=== PATIENT | female | born 1975 | race Caucasian/White ===

== ENCOUNTER 2017-02-19 21:09 | Emergency (ER) | payer MEDICAID ==
--- NOTE | 2017-02-20 03:41 | ER Document Report ---
ED General - General Chief Complaint: High Blood Pressure Stated Complaint: ABDOMINAL PAIN Time Seen by Provider: 02/20/17 02:57 Notes: Patient is a 41-year-old female presents with complaint of feeling fatigued. Patient does have history of CHF. She was competing in the [employer] this past weekend. Competition was in [place]. Family said she did have a busy weekend. Said that caretakers feel that maybe she is retaining more fluid. She felt as if her abdomen is more distended. She has chronic abdominal pain. She was getting constipated because of the pain medicine she takes for chronic abdominal pain. The mother did give her Dulcolax. She had a large bowel movement this morning. That seems to be improving. They have noticed slight increase edema in her lower extremities. Patient says she feels some shortness of breath. No chest pain. She does have history of lupus. She takes a total of 160 mg of Lasix a day. She is on thyroid medication. TRAVEL OUTSIDE OF THE [place] IN LAST 30 DAYS: No - Related Data Allergies/Adverse Reactions: APIXABAN Allergy (Verified 05/27/14 15:53) ciprofloxacin [Ciprofloxacin] Allergy (Verified 05/27/14 15:15) dabigatran etexilate Allergy (Verified 05/27/14 15:53) fexofenadine [Fexofenadine] Allergy (Verified 05/27/14 15:53) Penicillins Allergy (Verified 05/27/14 15:15) Rash phenytoin sodium [From Dilantin] Allergy (Verified 05/27/14 15:15) phenytoin sodium extended [From Dilantin] Allergy (Verified 05/27/14 15:15) Rivaroxaban Allergy (Verified 05/27/14 15:53) Past Medical History - Social History Smoking Status: Never Smoker Frequency of alcohol use: None Drug Abuse: None Family History: Reviewed & Not Pertinent Patient has suicidal ideation: No Patient has homicidal ideation: No - Past Medical History Cardiac Medical History: Reports: Hx Atrial Fibrillation, Hx Congestive Heart Failure, Hx Hypertension Denies: Hx Coronary Artery Disease, Hx Heart Attack Pulmonary Medical History: Reports: Hx Pneumonia Denies: Hx Asthma, Hx Bronchitis, Hx COPD Neurological Medical History: Reports: Hx Seizures. Denies: Hx Cerebrovascular Accident Renal/ Medical History: Denies: Hx Peritoneal Dialysis Musculoskeltal Medical History: Denies Hx Arthritis Psychiatric Medical History: Denies: Hx Depression Past Surgical History: Reports: Hx Cholecystectomy, Hx Myringotomy, Hx Tonsillectomy - Immunizations Hx Diphtheria, Pertussis, Tetanus Vaccination: No Hx Pneumococcal Vaccination: 05/30/14 Review of Systems - Review of Systems Notes: My Normal Review Basic REVIEW OF SYSTEMS: CONSTITUTIONAL : Denies fever, chills, or sweats. Denies recent illness. EENT: Denies eye, ear, throat, or mouth pain or symptoms. Denies nasal or sinus congestion. CARDIOVASCULAR: Denies chest pain. RESPIRATORY: Denies cough, cold, or chest congestion. Denies shortness of breath, difficulty breathing, or wheezing. GASTROINTESTINAL: Some abdominal pain. Denies nausea, vomiting, or diarrhea. Denies constipation. Last BM: GENITOURINARY: Denies difficulty urinating, painful urination, burning, frequency, or blood in urine. FEMALE GENITOURINARY: Denies vaginal bleeding, abnormal or irregular periods. LMP: Currently on menstrual period. MUSCULOSKELETAL: Denies neck or back pain or joint pain or swelling. SKIN: Denies rash or skin lesions. LYMPHATIC: Chronic edema. NEUROLOGICAL: Denies altered mental status or loss of consciousness. Denies headache. Denies weakness or paralysis or loss of use of either side. Denies problems with gait or speech. Denies sensory or motor loss. ALL OTHER SYSTEMS REVIEWED AND NEGATIVE. Physical Exam - Vital signs Vitals: Temp Pulse Resp BP Pulse Ox 98.6 F 100 20 123/83 98 02/19/17 21:35 02/19/17 21:35 02/19/17 21:35 02/19/17 21:35 02/19/17 21:35 - Notes Notes: General Appearance: Well nourished, alert, cooperative, no acute distress, no obvious discomfort. Well-appearing. Vitals: reviewed, See vital signs table. Head: no swelling or tenderness to the head Eyes: PERRL, EOMI, Conjuctiva clear Mouth: No decreasd moisture Neck: Supple, no neck tenderness, No thyromegaly Lungs: No wheezing, No rales, No rhonci, No accessory muscle use, good air exchange bilaterally. Heart: Normal rate, Regular rythm, No murmur, no rub Abdomen: Normal BS, soft, No rigidity, No abdominal tenderness, No guarding, no rebound, no abdominal masses, no organomegaly Extremities: strength 5/5 in all extremities, good pulses in all extremities, no swelling or tenderness in the extremities, 1+ bilateral lower extremity edema. Skin: warm, dry, appropriate color, no rash Neuro: speech clear, oriented x 3, normal affect, responds appropriately to questions. Course - Vital Signs Vital signs: Temp Pulse Resp BP Pulse Ox 98 F 73 18 111/58 L 95 02/20/17 05:54 02/20/17 05:54 02/20/17 05:54 02/20/17 05:54 02/20/17 05:54 - Laboratory Result Diagrams: 02/20/17 04:13 02/20/17 04:13 Laboratory results interpreted by me: 02/20/17 02/20/17 02/20/17 02:50 04:13 04:13 Hgb 11.5 L Hct 35.8 L RDW 15.1 H Seg Neutrophils % 78.6 H Lymphocytes % 10.0 L PT Potassium 3.2 L Creatinine 0.45 L Alkaline Phosphatase 134 H Creatine Kinase NT-Pro-B Natriuret Pep Urine Protein 30 H Urine Blood MODERATE H Urine Ascorbic Acid 40 H 02/20/17 02/20/17 02/20/17 04:13 04:13 04:13 Hgb Hct RDW Seg Neutrophils % Lymphocytes % PT 24.2 H Potassium Creatinine Alkaline Phosphatase Creatine Kinase 22 L NT-Pro-B Natriuret Pep 1050 H Urine Protein Urine Blood Urine Ascorbic Acid - EKG Interpretation by Me Additional EKG results interpreted by me: 02/20/17 03:35 EKG #1 is reviewed and interpreted by me. EKG shows A. fib with rate of [address] segment elevation or depression. No ischemic T-wave inversions. QRS duration QT intervals are within normal range. Old EKG for comparison is from November 26, 2014. EKG #2 is reviewed and interpreted by me. EKG shows A. fib with a rate of [address] segment elevation or depression. No ischemic T-wave inversions. QRS duration is within normal range. QTc interval slightly prolonged. Old EKG available for comparison is from earlier today. - Transfer of Care Notes: 02/20/17 09:29 Patient has remained very stable. She has had no increased work of breathing. She has been laying flat with and has An oxygen saturation of 98-100%. She has been in a fib the whole time she has been here. Her rate mainly is in the 90s. Blood pressure has been good. Currently she looks well and I feel she is safe for discharge. I did speak with Dr. Mata, field education director covering for Dr. Herman. I did explain to him the chest x-ray as well as laboratory findings. I did compare her chest x-ray to her previous chest x-rays and it appears to be minimally to unchanged. Dr. Mata suggested that the patient does need to be set up for an outpatient cardioversion. I did explain this to the family the family requested that I transfer the patient today so that they would not worry about transportation arrangements next week. I did call back Dr. Mata and he requests that it since the patient is therapeutic that I should cardiovert here. I did review the patient's previous INRs and the mother does mention that the patient's INRs have been fluctuating and sometimes subtherapeutic. Family does not want me to perform cardioversion here and I also agree that I should not be performing a transthoracic cardioversion when the patient's INRs are not consistently therapeutic. I did contact Dr. Mata and explained to him. He understands and says that he would contact Dr. Herman to arrange for an outpatient cardioversion. I went back to the family and they are understanding of this. They are encouraged to keep the patient from doing exertional activities. Encouraged to return to ER immediately if the patient has increased difficulty breathing, fevers, chest pain, or if she appears unwell in any way. Family agrees with plan and patient will be discharged home. Patient also has a follow-up appointment with Dr. Rodríguez on Wednesday. I did call Dr. Rodríguez and discuss plan with him. Dictation of this chart was performed using voice recognition software; therefore, there may be some unintended grammatical errors. Discharge - Discharge Clinical Impression: Atrial fibrillation Qualifiers: Atrial fibrillation type: persistent Qualified Code(s): I48.1 - Persistent atrial fibrillation Condition: Good Disposition: HOME, SELF-CARE Additional Instructions: You should be hearing from Dr. Herman's office on Wednesday to arrange for a cardioversion. Please call them if you do not hear from them by Wednesday afternoon. Please return to the ER immediately if Abbie develops worsening difficulty breathing, fevers, or appears to be worsening in any way. Referrals: NCAHO RODRÍGUEZ MD [Primary Care Provider] - 02/22/17
--- NOTE | 2017-02-20 04:21 | RADIOLOGY REPORT (SQ) ---
EXAM DESCRIPTION: CHEST SINGLE VIEW COMPLETED DATE/TIME: 02/20/2017 4:08 am REASON FOR STUDY: dyspnea COMPARISON: 11/29/2014. 11/26/2014. EXAM PARAMETERS: NUMBER OF VIEWS: One view. TECHNIQUE: Single frontal radiographic view of the chest acquired. RADIATION DOSE: NA LIMITATIONS: None. FINDINGS: LUNGS AND PLEURA: Moderate central pulmonary edema pattern. MEDIASTINUM AND HILAR STRUCTURES: No masses. Contour normal. HEART AND VASCULAR STRUCTURES: Moderate enlargement of the cardiac silhouette. BONES: No acute findings. HARDWARE: None in the chest. OTHER: No other significant finding. IMPRESSION: Moderate CHF pattern. TECHNICAL DOCUMENTATION: JOB ID: [id number]
[2017-02-20 04:34] LABS: APPEARANCE,URINE SLIGHTLY-CLOUDY; BILIRUBIN,URINE NEGATIVE (NEGATIVE); GLUCOSE, URINE NEGATIVE (NEGATIVE); KETONES,URINE NEGATIVE (NEGATIVE); LEUKOCYTE ESTERASE,URINE NEGATIVE (NEGATIVE); NITRITE,URINE NEGATIVE (NEGATIVE); PROTEIN,URINE 30 mg/dL (NEGATIVE); URINE SPECIFIC GRAVITY 1.024; UROBILINOGEN,URINE NEGATIVE mg/dL (<2.0)
[2017-02-20 04:37] LABS: ALANINE AMINOTRANSFERASE 26 U/L (9-52); ALBUMIN 3.7 g/dL (3.5-5.0); ALKALINE PHOSPHATASE 134 U/L (38-126); ANION GAP 12 (5-19); ASPARTATE AMINO TRANSFERASE 18 U/L (14-36); BILIRUBIN,DIRECT 0.4 mg/dL (0.0-0.4); BILIRUBIN,TOTAL 0.6 mg/dL (0.2-1.3); BLOOD UREA NITROGEN 10 mg/dL (7-20); CALCIUM 9.2 mg/dL (8.4-10.2); CARBON DIOXIDE 26 mmol/L (22-30); CHLORIDE 103 mmol/L (98-107); CREATININE RESULT 0.45 mg/dL (0.52-1.25); GLUCOSE 93 mg/dL (75-110); LIPASE 88.9 U/L (23-300); POTASSIUM 3.2 mmol/L (3.6-5.0); SODIUM 140.9 mmol/L (137-145); TOTAL PROTEIN 7.3 g/dL (6.3-8.2)
[2017-02-20 04:38] LABS: ABSOLUTE EOSINOPHILS # (AUTO) 0.1 10^3/uL (0.0-0.6); ABSOLUTE LYMPHOCYTES (AUTO) 0.5 10^3/uL (0.5-4.7); ABSOLUTE MONOCYTES (AUTO) 0.4 10^3/uL (0.1-1.4); ABSOLUTE NEUT (AUTO) 3.7 10^3/uL (1.7-8.2); BASOPHILS % (AUTO) 0.3 % (0-2); EOSINOPHILS % (AUTO) 2.3 % (0-6); HEMATOCRIT 35.8 % (36.0-47.0); HEMOGLOBIN 11.5 g/dL (12.0-15.5); HGB HCT DIFFERENCE -1.3; MEAN CORPUSCULAR HEMOGLOBIN 28.3 pg (27.0-33.4); MEAN CORPUSCULAR HGB CONC 32.3 g/dL (32.0-36.0); MEAN CORPUSCULAR VOLUME 88 fl (80-97); MONOCYTES % (AUTO) 8.8 % (3-13); RED BLOOD COUNT 4.08 10^6/uL (3.72-5.28); RED CELL DISTRIBUTION WIDTH 15.1 % (11.5-14.0); SEGMENTED NEUTROPHILS % (AUTO) 78.6 % (42-78); WHITE BLOOD COUNT 4.7 10^3/uL (4.0-10.5)
[2017-02-20 05:08] LABS: TROPONIN I 0.018 ng/mL
[2017-02-20 05:09] LABS: THYROID STIMULATING HORMONE 4.07 uIU/mL (0.47-4.68)
[2017-02-20 05:11] LABS: CREATINE KINASE MB < 0.22 ng/mL (<4.55)
[2017-02-20] MEDS ORDERED: FUROSEMIDE INJ/PF 40 MG/4 ML SDV IV ONE (05:26)
[2017-02-20 07:48] LABS: PROTHROMBIN TIME 24.2 SEC (11.4-15.4)
[2017-02-20] MEDS ORDERED: WARFARIN SODIUM 5 MG TABLET PO ONE (07:49)
[2017-02-20 09:46] VITALS: BP 98/66
--- NOTE | 2017-02-22 09:27 | EKG REPORT ---
SEVERITY:- ABNORMAL ECG - ATRIAL FIBRILLATION, V-RATE 75-124 CONSIDER RIGHT VENTRICULAR HYPERTROPHY BORDERLINE T ABNORMALITIES, INFERIOR LEADS : Confirmed by: Rajan Chandler 22-Feb-2017 09:26:24
--- NOTE | 2017-02-22 09:27 | EKG REPORT ---
SEVERITY:- ABNORMAL ECG - ATRIAL FIBRILLATION, V-RATE 91-115 BORDERLINE T ABNORMALITIES, INFERIOR LEADS : Confirmed by: Rajan Chandler 22-Feb-2017 09:26:37
== END 2017-02-20 09:59 | disposition home or self-care (01) ==
LOC: ER 21:09
DX: I48.1 Persistent atrial fibrillation (principal); R03.0 Elevated blood-pressure reading, without diagnosis of hypertension; R10.9 Unspecified abdominal pain; R53.83 Other fatigue; I50.9 Heart failure, unspecified; R06.02 Shortness of breath; M32.9 Systemic lupus erythematosus, unspecified; Z79.899 Other long term (current) drug therapy
CPT/HCPCS: 93005; 99284; 96374; 36415; 84439; 82553; 82550; 83690; 84443; 85025; 85610; 81025; 80053; 81001; 84484; 85379; 83880; 71010; 93010; J1940; J3490

== ENCOUNTER → 2017-08-11 | Outpatient (CLI) | payer MEDICAID ==
--- NOTE | 2017-08-11 11:24 | RADIOLOGY REPORT (SQ) ---
EXAM DESCRIPTION: CT FACIAL AREA WITHOUT COMPLETED DATE/TIME: 08/11/2017 10:05 am REASON FOR STUDY: CHRONIC SINUSITIS J32.9 CHRONIC SINUSITIS, UNSPECIFIED COMPARISON: None. TECHNIQUE: Noncontrast scanning through the paranasal sinuses using bone algorithm. Reconstructed MPR images reviewed. All images stored on PACS. Images acquired for image guided surgery. All CT scanners at this facility use dose modulation, iterative reconstruction, and/or weight based d osing when appropriate to reduce radiation dose to as low as reasonably achievable (ALARA). [facility]: Dose Right [facility]: CareDose [facility]: Dose Right [facility]: Teradose 4D [facility]: TRUECar RADIATION DOSE: mGy. FINDINGS: NASAL PASSAGES: Clear. No polyps or masses. OSTEOMEATAL UNITS AND NASOFRONTAL DUCTS: Patent. No agger nasi or Tamie cells. MAXILLARY SINUSES: Mild mucous membrane thickening. Maxillary sinus outlets are patent. ETHMOID SINUSES: Well-pneumatized and clear. SPHENOID SINUSES: Well-pneumatized and clear. No sphenoethmoid air cells or pneumatized pterygoid rec ess. No pneumatized dorsal sella. FRONTAL SINUSES: Well-pneumatized and clear. MASTOID AIR CELLS: Clear. ORBITS: Normal and symmetrical. NASAL SEPTUM: Midline. No nasal septal spurs. TEMPOROMANDIBULAR JOINTS: Normal. TURBINATES: No pneumatized turbinates. MUCOPERIOSTEAL THICKENING: No. MUCOCELE: No. OTHER: No other significant findings. IMPRESSION: MILD MUCOUS MEMBRANE THICKENING IN THE MAXILLARY SINUSES. OTHERWISE CLEAR. TECHNICAL DOCUMENTATION: JOB ID: [id number] Quality ID # [id number]: Final reports with documentation of one or more dose reduction techniques (e.g., Au tomated exposure control, adjustment of the mA and/or kV according to patient size, use of iterative reconstruction technique) 2010 [employer]- All Rights Reserved
== END ==
LOC: RAD 09:47
PROVIDERS: ATTEND Internal Medicine
DX: J32.9 Chronic sinusitis, unspecified (principal)
CPT/HCPCS: 70486

== ENCOUNTER 2018-09-29 16:18 | Emergency (ER) | payer MEDICAID ==
--- NOTE | 2018-09-29 17:15 | ER Document Report ---
ED Medical Screen (RME) - General Chief Complaint: Hand Injury Stated Complaint: HAND INJURY Time Seen by Provider: 09/29/18 17:14 Mode of Arrival: Ambulatory Information source: Relative Notes: This is a 42-year-old female with a history of atrial fibrillation, cardiomyopathy (Coumadin), lupus, epilepsy. Patient presents to the emergency room after closing the car door on her right hand. Patient presents with pain to the right hand. TRAVEL OUTSIDE OF THE [place] IN LAST 30 DAYS: No - HPI Onset: Just prior to arrival Onset/Duration: Sudden Quality of pain: Dull Severity: Moderate Pain Level: 2 Associated Symptoms: denies: Chest pain, Shortness of breath Exacerbated by: Movement Relieved by: Remaining still Similar symptoms previously: Yes Recently seen / treated by doctor: Yes - Related Data Smoking: Non-smoker Frequency of alcohol use: None Drug Abuse: None Allergies/Adverse Reactions: APIXABAN Allergy (Verified 09/29/18 16:22) ciprofloxacin [Ciprofloxacin] Allergy (Verified 09/29/18 16:22) dabigatran etexilate Allergy (Verified 09/29/18 16:22) fexofenadine [Fexofenadine] Allergy (Verified 09/29/18 16:22) Penicillins Allergy (Verified 09/29/18 16:22) Rash phenytoin sodium [From Dilantin] Allergy (Verified 09/29/18 16:22) phenytoin sodium extended [From Dilantin] Allergy (Verified 09/29/18 16:22) Rivaroxaban Allergy (Verified 09/29/18 16:22) Past Medical History - General Information source: Patient - Social History Cigarette use (# per day): No Chew tobacco use (# tins/day): No Frequency of alcohol use: None Drug Abuse: None Lives with: Family Family history: None - Past Medical History Cardiac Medical History: Reports: Hx Atrial Fibrillation, Hx Congestive Heart Failure, Hx Hypertension Denies: Hx Coronary Artery Disease, Hx Heart Attack Pulmonary Medical History: Reports: Hx Pneumonia Denies: Hx Asthma, Hx Bronchitis, Hx COPD Neurological Medical History: Reports: Hx Seizures. Denies: Hx Cerebrovascular Accident Renal/ Medical History: Denies: Hx Peritoneal Dialysis Musculoskeltal Medical History: Denies Hx Arthritis Psychiatric Medical History: Denies: Hx Depression Past Surgical History: Reports: Hx Cholecystectomy, Hx Myringotomy, Hx Tonsillectomy - Immunizations Hx Diphtheria, Pertussis, Tetanus Vaccination: No Review of Systems - Review of Systems Constitutional: denies: Chills, Fever EENT: No symptoms reported Cardiovascular: denies: Chest pain, Palpitations, Heart racing Respiratory: denies: Cough, Hemoptysis, Wheezing Gastrointestinal: denies: Abdominal pain, Diarrhea, Vomiting Genitourinary: No symptoms reported Female Genitourinary: No symptoms reported Musculoskeletal: See HPI Skin: No symptoms reported Hematologic/Lymphatic: No symptoms reported Neurological/Psychological: No symptoms reported Physical Exam - Vital signs Vitals: Temp Pulse Resp BP Pulse Ox 98.5 F 86 16 118/70 100 09/29/18 16:46 09/29/18 16:46 09/29/18 16:46 09/29/18 16:46 09/29/18 16:46 Notes: Physical exam: GENERAL: Vision is alert and oriented x3, no acute distress HEAD: Atraumatic, normocephalic. EYES: Pupils equal round and reactive to light, extraocular movements intact, sclera anicteric, conjunctiva are normal. ENT: TMs normal, nares patent, oropharynx clear without exudates. Moist mucous membranes. NECK: Normal range of motion, supple without obvious mass LUNGS: Breath sounds clear to auscultation bilaterally and equal. No wheezes rales or rhonchi. HEART: Regular rate and rhythm without murmurs, rubs or gallops. ABDOMEN: Soft, normoactive bowel sounds. No tenderness to palpation. No guarding, no rebound. No masses appreciated. EXTREMITIES: Right hand: Patient does have a swelling over the MCP joints 3 - 5. She has some tenderness over the MCP joints. There is a range of motion. There is some pain with range of motion. The patient's cap refill is good. There is no significant hematoma. There is no breaks in the skin. There is no active bleeding. She does have a good radial pulse. NEUROLOGICAL: Baseline as per family PSYCH: Baseline as per family SKIN: Noted above underneath the hand exam.. Course - Vital Signs Vital signs: Temp Pulse Resp BP Pulse Ox 98.5 F 90 16 121/67 99 09/29/18 16:46 09/29/18 18:34 09/29/18 18:34 09/29/18 18:34 09/29/18 18:34 - Diagnostic Test Radiology reviewed: Image reviewed, Reports reviewed - X-rays of the hand show no acute fracture Doctor's Discharge - Discharge Clinical Impression: Right hand contusion status post crush Condition: Stable Disposition: HOME, SELF-CARE Additional Instructions: As we discussed, the x-rays of the hand showed no fractures of the bones. I do expect some bruising because you are on the Coumadin, but I do not expect significant bleeding given that there is no fractures of the bone. You can use the splint for comfort. You may take off if in the shower. Use the splint for 1 week and gradual range of motion after that. Follow-up with Dr. Rodríguez, return to the emergency room for worsening pain. Referrals: STEPHANI SCHRADER MD [NO LOCAL MD] - Follow up as needed NACHO RODRÍGUEZ MD [Primary Care Provider] - Follow up in 3-5 days
--- NOTE | 2018-09-29 18:05 | RADIOLOGY REPORT (SQ) ---
EXAM DESCRIPTION: HAND RIGHT 3 VIEWS COMPLETED DATE/TIME: 09/29/2018 5:40 pm REASON FOR STUDY: right hand crush COMPARISON: None. EXAM PARAMETERS: NUMBER OF VIEWS: Three views. TECHNIQUE: AP, lateral and oblique radiographic images acquired of the right hand. LIMITATIONS: None. FINDINGS: MINERALIZATION: Normal. BONES: No acute fracture or dislocation. No worrisome bone lesions. JOINTS: No effusions. SOFT TISSUES: No soft tissue swelling. No foreign body. OTHER: No other significant finding. IMPRESSION: NEGATIVE STUDY OF THE RIGHT HAND. NO RADIOGRAPHIC EVIDENCE OF ACUTE INJURY. TECHNICAL DOCUMENTATION: JOB ID: [id number] [email or web address]- All Rights Reserved Reading location - IP/workstation name: [email or web address]
[2018-09-29 18:34] VITALS: BP 121/67
== END 2018-09-29 18:34 | disposition home or self-care (01) ==
LOC: ER 16:18
DX: S60.221A Contusion of right hand, initial encounter (principal); W23.1XXA Caught, crushed, jammed, or pinched between stationary objects, initial encounter; I48.91 Unspecified atrial fibrillation; I42.9 Cardiomyopathy, unspecified; I50.9 Heart failure, unspecified; I11.0 Hypertensive heart disease with heart failure; Z79.02 Long term (current) use of antithrombotics/antiplatelets; Z90.49 Acquired absence of other specified parts of digestive tract
CPT/HCPCS: 99283; 73130; L3908

== ENCOUNTER → 2019-08-16 | Outpatient (CLI) | payer MEDICARE, MEDICAID | LOC: LAB 12:30 | PROVIDERS: ATTEND Internal Medicine Cardiovascular Disease | DX: Z20.5 Contact with and (suspected) exposure to viral hepatitis (principal) | CPT/HCPCS: 86701; 87340 ==

== ENCOUNTER 2020-10-11 11:54 | Emergency (ER) | payer MEDICARE, MEDICAID ==
[2020-10-11 12:03] VITALS: BP 102/72
--- NOTE | 2020-10-11 12:37 | ER Document Report ---
ED Medical Screen (RME) - General Stated Complaint: MEDICAL COMPLAINT Time Seen by Provider: 10/11/20 12:32 Primary Care Provider: STEPHANI SCHRADER MD [Primary Care Provider] - Follow up as needed Notes: Patient presents with report of elevated INR greater than 8 from a test that was done today. Patient typically takes Coumadin 10 mg on Wednesday and Wednesday with 15 mg on the other days. Patient last took a dose last night. Patient reports a fall recently with a small bruise to the right shoulder but no other abnormal bleeding or bruising. I have greeted and performed a rapid initial assessment of this patient. A comprehensive ED assessment and evaluation of the patient, analysis of test results and completion of the medical decision making process will be conducted by additional ED providers. TRAVEL OUTSIDE OF THE [place] IN LAST 30 DAYS: No - Related Data Allergies/Adverse Reactions: APIXABAN Allergy (Verified 10/11/20 12:27) ciprofloxacin [Ciprofloxacin] Allergy (Verified 10/11/20 12:27) dabigatran etexilate Allergy (Verified 10/11/20 12:27) fexofenadine [Fexofenadine] Allergy (Verified 10/11/20 12:27) Penicillins Allergy (Verified 10/11/20 12:27) Rash phenytoin sodium [From Dilantin] Allergy (Verified 10/11/20 12:27) phenytoin sodium extended [From Dilantin] Allergy (Verified 10/11/20 12:27) Rivaroxaban Allergy (Verified 10/11/20 12:27) Past Medical History - Social History Family history: None - Past Medical History Cardiac Medical History: Reports: Hx Atrial Fibrillation, Hx Congestive Heart Failure, Hx Hypertension Denies: Hx Coronary Artery Disease, Hx Heart Attack Pulmonary Medical History: Reports: Hx Pneumonia Denies: Hx Asthma, Hx Bronchitis, Hx COPD Neurological Medical History: Reports: Hx Seizures. Denies: Hx Cerebrovascular Accident Renal/ Medical History: Denies: Hx Peritoneal Dialysis Musculoskeltal Medical History: Denies Hx Arthritis Psychiatric Medical History: Denies: Hx Depression Past Surgical History: Reports: Hx Cardiac Surgery - cardioversion, ablasion, Hx Cholecystectomy, Hx Myringotomy, Hx Tonsillectomy - Immunizations Hx Diphtheria, Pertussis, Tetanus Vaccination: No Physical Exam - Vital signs Vitals: Temp Pulse Resp BP Pulse Ox 97.6 F 88 20 102/72 100 10/11/20 12:00 10/11/20 12:00 10/11/20 12:00 10/11/20 12:00 10/11/20 12:00 - General General appearance: Appears well, Alert - Respiratory Respiratory status: No respiratory distress Course - Vital Signs Vital signs: Temp Pulse Resp BP Pulse Ox 97.6 F 88 20 102/72 100 10/11/20 12:00 10/11/20 12:00 10/11/20 12:00 10/11/20 12:00 10/11/20 12:00 Doctor's Discharge - Discharge Referrals: STEPHANI SCHRADER MD [Primary Care Provider] - Follow up as needed
[2020-10-11 13:04] LABS: HEMATOCRIT 33.5 % (36.0-47.0); HEMOGLOBIN 11.2 g/dL (12.0-15.5); MEAN CORPUSCULAR HEMOGLOBIN 30.7 pg (27.0-33.4); MEAN CORPUSCULAR HGB CONC 33.5 g/dL (32.0-36.0); MEAN CORPUSCULAR VOLUME 92 fl (80-97); PLATELET COUNT 186 10^3/uL (150-450); RED BLOOD COUNT 3.65 10^6/uL (3.72-5.28); RED CELL DISTRIBUTION WIDTH 15.8 % (11.5-14.0); WHITE BLOOD COUNT 4.7 10^3/uL (4.0-10.5)
[2020-10-11 13:17] LABS: ALBUMIN 4.3 g/dL (3.5-5.0); ALKALINE PHOSPHATASE 145 U/L (38-126); ANION GAP 12 (5-19); ASPARTATE AMINO TRANSFERASE 34 U/L (14-36); BILIRUBIN,DIRECT 0.3 mg/dL (0.0-0.4); BILIRUBIN,TOTAL 0.4 mg/dL (0.2-1.3); BLOOD UREA NITROGEN 26 mg/dL (7-20); CALCIUM 9.3 mg/dL (8.4-10.2); CARBON DIOXIDE 32 mmol/L (22-30); CHLORIDE 96 mmol/L (98-107); GLUCOSE 112 mg/dL (75-110); TOTAL PROTEIN 7.8 g/dL (6.3-8.2)
[2020-10-11 13:22] LABS: ABSOLUTE LYMPHOCYTES# (MANUAL) 0.1 10^3/uL (0.5-4.7); ABSOLUTE MONOCYTES # (MANUAL) 0.2 10^3/uL (0.1-1.4); BAND NEUTROPHILS % (MANUAL) 1 % (3-5); BASOPHILS % (MANUAL) 0 % (0-2); EOSINOPHILS % (MANUAL) 0 % (0-6); LYMPHOCYTES % (MANUAL) 2 % (13-45); MONOCYTES % (MANUAL) 5 % (3-13); SEGMENTED NEUTROPHILS % (MAN) 92 % (42-78); TOTAL CELLS COUNTED 100
[2020-10-11 13:23] LABS: OVALOCYTES SLIGHT; PLATELET COMMENT ADEQUATE; POIKILOCYTOSIS SLIGHT
[2020-10-11 13:39] LABS: INTERNATIONAL RATION (INR) 10.92; PROTHROMBIN TIME 83.1 SEC (11.4-15.4)
--- NOTE | 2020-10-11 13:46 | ER Document Report ---
ED General - General Chief Complaint: Abnormal Lab Results Stated Complaint: MEDICAL COMPLAINT Time Seen by Provider: 10/11/20 12:32 Primary Care Provider: STEPHANI SCHRADER MD [NO LOCAL MD] - 10/14/20 Notes: Patient is a 44-year-old female with a history of congestive heart failure, atrial fibrillation, lupus, and epilepsy presents emergency department with elevated INR levels. Her INR was 9 from the outpatient lab. About 2 weeks ago, she fell out of the chair. Mother states that she has been a little more lethargic than normal. Patient also has a history of cognitive delay. She is not able to give any meaningful history or say what hurts. TRAVEL OUTSIDE OF THE [place] IN LAST 30 DAYS: No - Related Data Allergies/Adverse Reactions: APIXABAN Allergy (Verified 10/11/20 12:27) ciprofloxacin [Ciprofloxacin] Allergy (Verified 10/11/20 12:27) dabigatran etexilate Allergy (Verified 10/11/20 12:27) fexofenadine [Fexofenadine] Allergy (Verified 10/11/20 12:27) Penicillins Allergy (Verified 10/11/20 12:27) Rash phenytoin sodium [From Dilantin] Allergy (Verified 10/11/20 12:27) phenytoin sodium extended [From Dilantin] Allergy (Verified 10/11/20 12:27) Rivaroxaban Allergy (Verified 10/11/20 12:27) Home Medications: coumadin Past Medical History - Social History Smoking Status: Never Smoker Chew tobacco use (# tins/day): No Frequency of alcohol use: None Drug Abuse: None Family History: Reviewed & Not Pertinent - Past Medical History Cardiac Medical History: Reports: Hx Atrial Fibrillation, Hx Congestive Heart Failure, Hx Hypertension Denies: Hx Coronary Artery Disease, Hx Heart Attack Pulmonary Medical History: Reports: Hx Pneumonia Denies: Hx Asthma, Hx Bronchitis, Hx COPD Neurological Medical History: Reports: Hx Seizures. Denies: Hx Cerebrovascular Accident Renal/ Medical History: Denies: Hx Peritoneal Dialysis Musculoskeletal Medical History: Denies Hx Arthritis Psychiatric Medical History: Denies: Hx Depression Past Surgical History: Reports: Hx Cardiac Surgery - cardioversion, ablasion, Hx Cholecystectomy, Hx Myringotomy, Hx Tonsillectomy - Immunizations Hx Diphtheria, Pertussis, Tetanus Vaccination: No Hx Pneumococcal Vaccination: 09/17/14 Review of Systems - Review of Systems -: Yes ROS unobtainable due to patient's medical condition Physical Exam - Vital signs Vitals: Temp Pulse Resp BP Pulse Ox 97.6 F 88 20 102/72 100 10/11/20 12:00 10/11/20 12:00 10/11/20 12:00 10/11/20 12:00 10/11/20 12:00 - Notes Notes: PHYSICAL EXAMINATION: GENERAL: Appears well, healthy, well-nourished, no acute distress. HEAD: Normocephalic, atraumatic. EYES: PERRL, conjunctiva normal, all extraocular movements intact, sclera nonicteric ENT: Moist mucous membranes. NECK: Supple, no noticeable swelling, redness, rash. Normal range of motion. LUNGS: Equal breath sounds bilaterally and clear to auscultation. No wheezes rales or rhonchi. CARDIOVASCULAR: S1-S2, regular rate, regular rhythm. Radial pulses 2+, normal. ABDOMEN: Normoactive bowel sounds. Soft, nontender, no guarding, no rebound tenderness, and no masses palpated. EXTREMITIES: Normal strength and range of motion, no pitting or edema. Small amount of eccymosis noted to right great toe and 2nd toe. NEUROLOGICAL: Moves all extremities upon command. Strength 5/5 in all extremit ies. PSYCH: Normal mood, normal affect. SKIN: Warm, dry. No rash, lesions, ulcerations noted. Normal skin turgor. Course - Re-evaluation Re-evalutation: 10/11/20 15:00 Hematology shows a hemoglobin of 11.2 and hematocrit of 33.5. INR is 10.92. And PTT is 83.1. I spoke with Dr. Terry, my attending. He does not recommend reversing the Coumadin, as there is no signs of hematomas or bleeding. I was able to look at the patient's stool and there was no black tarry stool. Instructed mother to hold the Coumadin. She is in agreement with this plan. CT of the head is unremarkable. I did a full head to toe assessment and did not see any significant bleeding. 10/11/20 15:33 I spoke Christina Argueta RN from [facility]. She states that it would be okay to give 2.5 mg of vitamin K. Then she will have her Coumadin checked on Wednesday. Mother agrees to watch over the patient. Follow-up precautions were given. Verbal discharge instructions were given to the mother. They verbalized understanding. They are stable for discharge. - Vital Signs Vital signs: Temp Pulse Resp BP Pulse Ox 97.6 F 88 20 102/72 100 10/11/20 12:00 10/11/20 12:00 10/11/20 12:00 10/11/20 12:00 10/11/20 12:00 - Laboratory Results Result Diagrams: 10/11/20 12:40 10/11/20 12:40 Laboratory Results Interpreted: 10/11/20 10/11/20 10/11/20 12:40 12:40 12:40 RBC 3.65 L Hgb 11.2 L Hct 33.5 L RDW 15.8 H Seg Neuts % (Manual) 92 H Band Neutrophils % 1 L Lymphocytes % (Manual) 2 L Abs Lymphs (Manual) 0.1 L PT 83.1 H* INR 10.92 H* Chloride 96 L Carbon Dioxide 32 H BUN 26 H Est GFR (MDRD) Non-Af 59 L Glucose 112 H Alkaline Phosphatase 145 H Critical Laboratory Results Reviewed: No Critical Results - Radiology Results Critical Radiology Results Reviewed: No Critical Results Discharge - Discharge Clinical Impression: Elevated INR Condition: Stable Disposition: HOME, SELF-CARE Additional Instructions: You were seen today in the emergency department for an elevated INR. Please do not take any Coumadin until instructed by your doctor. Have your INR checked on Wednesday. If you pass out, are not acting your normal self, fall, or have any symptoms that are worrisome to you, please return to the emergency department. Referrals: STEPHANI SCHRADER MD [NO LOCAL MD] - 10/14/20
--- NOTE | 2020-10-11 14:17 | RADIOLOGY REPORT (SQ) ---
EXAM DESCRIPTION: CT HEAD WITHOUT IMAGES COMPLETED DATE/TIME: 10/11/2020 2:02 pm REASON FOR STUDY: AMS; on coumadin; High INR COMPARISON: 12/31/2018 TECHNIQUE: Axial images acquired through the brain without intravenous contrast. Images reviewed wi th bone, brain and subdural windows. Additional sagittal and coronal reconstructions were generated. Images stored on PACS. All CT scanners at this facility use dose modulation, iterative reconstruction, and/or weight based d osing when appropriate to reduce radiation dose to as low as reasonably achievable (ALARA). [facility]: Dose Right [facility]: CareDose [facility]: Dose Right [facility]: Teradose 4D [facility]: Smart damntheradio RADIATION DOSE: CT Rad equipment meets quality standard of care and radiation dose reduction techniq ues were employed. CTDIvol: 53.2 mGy. DLP: 911 mGy-cm. mGy. LIMITATIONS: None. FINDINGS: VENTRICLES: Normal size and contour. CEREBRUM: No masses. No hemorrhage. No midline shift. No evidence for acute infarction. Normal gra y/white matter differentiation. No areas of low density in the white matter. CEREBELLUM: No masses. No hemorrhage. No alteration of density. No evidence for acute infarction. EXTRAAXIAL SPACES: No fluid collections. No masses. ORBITS AND GLOBE: No intra- or extraconal masses. Normal contour of globe without masses. CALVARIUM: No fracture. PARANASAL SINUSES: No fluid or mucosal thickening. SOFT TISSUES: No mass or hematoma. OTHER: No other significant finding. IMPRESSION: NORMAL BRAIN CT WITHOUT CONTRAST. EVIDENCE OF ACUTE STROKE: NO. COMMENT: Quality ID # [id number]: Final reports with documentation of one or more dose reduction techniques (e.g., Automated exposure control, adjustment of the mA and/or kV according to patient size, use of iterative reconstruction technique) TECHNICAL DOCUMENTATION: JOB ID: [id number] 2010 [employer]- All Rights Reserved Reading location - IP/workstation name: [email or web address]
[2020-10-11] MEDS ORDERED: PHYTONADIONE 5 MG TABLET PO ONE (15:32)
== END 2020-10-11 16:55 | disposition home or self-care (01) ==
LOC: ER 11:54
DX: R79.89 Other specified abnormal findings of blood chemistry (principal); R53.83 Other fatigue; Z79.02 Long term (current) use of antithrombotics/antiplatelets; R62.50 Unspecified lack of expected normal physiological development in childhood; R41.82 Altered mental status, unspecified; I48.91 Unspecified atrial fibrillation; I50.9 Heart failure, unspecified; I11.0 Hypertensive heart disease with heart failure; Z90.49 Acquired absence of other specified parts of digestive tract; Z88.0 Allergy status to penicillin; Z88.3 Allergy status to other anti-infective agents
CPT/HCPCS: 99284; 36415; 85025; 85610; 80053; 70450; A9270; J3490